=== PATIENT | female | born 1930 | race Caucasian/White ===

== ENCOUNTER 2016-12-14 17:07 | Emergency (ER) | payer OTHER, MEDICAID ==
[~2016-12-14] VITALS: Ht 149.9 cm; Wt 59.0 kg
[~2016-12-14 17:07] MED LIST: ALEN70TA3 PO; GLU500 PO; LISI-600 PO; RANI300T4 PO; SIMV10TA6 PO
[2016-12-14 17:16] VITALS: BP 209/81; PULSE 60; RESP 18; TEMP 98.1; O2SAT 99
--- NOTE | 2016-12-14 17:16 | NUR ---
Patient to ER bed 2 to gown for evaluation. Side rails up. Report given to Royer CAMERON.
--- NOTE | 2016-12-14 17:20 | NUR ---
ER at bedside examining patient.
--- NOTE | 2016-12-14 17:38 | NUR ---
Medication reconciliation completed with information provided by - handwritten list from patient. Any prior medication reconciliation on file was reviewed and corrected.
[2016-12-14] MEDS ORDERED: ONDANSETRON HCL 4 MG/2 ML VIAL IVP ONE (17:45)
[2016-12-14] MEDS ORDERED: hydrALAZINE HCL 20 MG/ML VIAL IVP ONE (17:45)
[2016-12-14] MEDS ORDERED: MORPHINE 4 MG/ML INJ. SYRINGE IVP ONE (17:45)
--- NOTE | 2016-12-14 17:45 | NUR ---
# 22 gauge angiocath placed to LFA. Use of asceptic technique. Opsite placed over site. Blood return noted. Blood for lab drawn from site. Flushed with 10 cc of normal saline. No evidence of infiltration noted. Patient tolerated well.
--- NOTE | 2016-12-14 18:05 | NUR ---
Patient transported to radiology via gurney, accompanied by rad staff.
--- NOTE | 2016-12-14 18:16 | NUR ---
Pt returned from rad dept.Pt tolerated well.
[2016-12-14 18:21] LABS: ANION GAP 9 (5-15); CALCIUM 9.7 mg/dL (8.4-11.0); CHLORIDE 102 mmol/L (98-107); CREATININE 0.92 mg/dL (0.55-1.30); GLUCOSE 172 mg/dL (70-99); POTASSIUM 4.5 mmol/L (3.5-5.1); SODIUM SERUM 141 mmol/L (136-145); UREA NITROGEN, BLOOD 15 mg/dL (8-21)
[2016-12-14 18:22] LABS: BASOPHILS % (AUTO) 0.4 % (0.0-2.0); EOSINOPHILS # (AUTO) 0.5 K/uL (0.0-0.4); EOSINOPHILS % (AUTO) 5.8 % (0.0-4.0); HEMATOCRIT 32.6 % (36-48); HEMOGLOBIN 11.1 g/dL (12.0-16.0); LYMPHOCYTES # (AUTO) 2.3 K/uL (1.0-5.5); LYMPHOCYTES % (AUTO) 26.1 % (20.5-51.5); MEAN CORPUSCULAR HEMOGLOBIN 31 pg (27-31); MEAN CORPUSCULAR HGB CONC 34 % (32-36); MEAN CORPUSCULAR VOLUME 90 fL (79.0-98.0); MONOCYTES # (AUTO) 0.7 K/uL (0.0-1.0); MONOCYTES % (AUTO) 8.1 % (1.7-9.3); NEUTROPHILS # (AUTO) 5.4 K/uL (1.8-7.7); NEUTROPHILS % (AUTO) 59.6 % (40.0-70.0); PLATELET COUNT (AUTO) 267 K/uL (130-430); RED BLOOD CELL COUNT(AUTO) 3.62 MIL/uL (4.2-6.2); RED CELL DISTRIBUTION WIDTH 13.9 % (9.0-15.0); WHITE BLOOD COUNT (AUTO) 8.9 K/uL (4.8-10.8)
[2016-12-14 18:27] LABS: ALANINE AMINOTRANSFERASE 16 U/L (12-78); ALBUMIN 3.9 g/dL (3.4-4.8); ASPARTATE AMINOTRANSFERASE 16 U/L (10-37); TOTAL BILIRUBIN 0.3 mg/dL (0.0-1.0); TOTAL PROTEIN, SERUM 7.1 g/dL (6.4-8.3)
--- NOTE | 2016-12-14 18:30 | NUR ---
[facility]
[2016-12-14 19:04] VITALS: BP 180/78; PULSE 75; RESP 18; TEMP 97.6; O2SAT 96
--- NOTE | 2016-12-14 19:04 | NUR ---
Patient given written and verbal discharge instructions and verbalizes understanding. ER MD discussed with patient the results and treatment provided. Given copies of tests performed in ER. Patient in stable condition. ID arm band removed. IV catheter removed intact and dressing applied, no active bleeding. Rx of NORCO given. Patient educated on pain management and to follow up with PMD. Pain Scale 3. Opportunity for questions provided and answered.
== END 2016-12-14 19:04 | disposition home or self-care (01) ==
LOC: SED 17:07
DX: S83.91XA Sprain of unspecified site of right knee, initial encounter (principal); S40.011A Contusion of right shoulder, initial encounter; S50.01XA Contusion of right elbow, initial encounter; E11.9 Type 2 diabetes mellitus without complications; I10 Essential (primary) hypertension; Z90.49 Acquired absence of other specified parts of digestive tract; W19.XXXA Unspecified fall, initial encounter; Y93.89 Activity, other specified; Y99.8 Other external cause status; Y92.89 Other specified places as the place of occurrence of the external cause
CPT/HCPCS: 29105; 36415; 73030; 73080; 73560; 80053; 85025; 85610; 85730; 96374; 96375; 99285; J0360; J2270; J2405

== ENCOUNTER 2019-02-12 19:17 | Emergency (ER) | payer OTHER, MEDICAID ==
[~2019-02-12] VITALS: Ht 134.6 cm; Wt 56.2 kg
[2019-02-12 19:27] VITALS: BP_SYST 162
--- NOTE | 2019-02-12 20:02 | NUR ---
Pt C/O dizziness, nausea and vomiting since this morning. Pt has hx of vertigo and took Meclizine with no relief. Pt denies any chest pain, SOB, or any other symptoms at this time. Family reported coffee ground emesis at home. Will continue to monitor.
--- NOTE | 2019-02-12 20:02 | NUR ---
Placed in room 2. [address] on [address] recording monitor, blood pressure machine and pulse oximeter. To gown for exam. Side rails up.
[2019-02-12] MEDS ORDERED: MECLIZINE HCL 25 MG TABLET (ANITVERT) PO ONE ×2 (20:30→22:00)
[2019-02-12] MEDS ORDERED: NACL 0.9% 1,000 ML IV ONE (20:30)
[2019-02-12] MEDS ORDERED: ONDANSETRON HCL 4 MG/2 ML VIAL IVP ONE (20:30)
[2019-02-12] MEDS ORDERED: hydrALAZINE HCL 20 MG/ML VIAL IVP ONE (20:45)
--- NOTE | 2019-02-12 20:45 | NUR ---
# 20 gauge angiocath placed to RT AC. Use of asceptic technique. Opsite placed over site. Blood return noted. Blood for lab drawn from site. Flushed with 10 cc of normal saline. No evidence of infiltration noted. Patient tolerated well.
--- NOTE | 2019-02-12 21:30 | NUR ---
Pt is resting in bed, no acute distress noted at this time. BP is 166/65 after medication administration
[2019-02-12] MEDS ORDERED: PROCHLORPERAZINE EDISYLATE 10 MG/2 ML VIAL IVP ONE (22:00)
--- NOTE | 2019-02-12 22:42 | NUR ---
Pt ambulated to the restroom still C/O dizziness at this time.
[2019-02-12 22:58] LABS: ANION GAP 13 (5-15); CHLORIDE 104 mmol/L (98-107); CREATININE 0.93 mg/dL (0.55-1.30); GLUCOSE 189 mg/dL (70-99); POTASSIUM 4.3 mmol/L (3.5-5.1); SODIUM SERUM 139 mmol/L (136-145); UREA NITROGEN, BLOOD 20 mg/dL (8-21)
[2019-02-12 23:00] LABS: BASOPHILS % (AUTO) 0.2 % (0.0-2.0); HEMATOCRIT 35.8 % (36-48); HEMOGLOBIN 11.6 g/dL (12.0-16.0); LYMPHOCYTES # (AUTO) 0.8 K/uL (1.0-5.5); LYMPHOCYTES % (AUTO) 6.2 % (20.5-51.5); MEAN CORPUSCULAR HEMOGLOBIN 29 pg (27-31); MEAN CORPUSCULAR HGB CONC 32 % (32-36); MEAN CORPUSCULAR VOLUME 88 fL (79.0-98.0); MONOCYTES # (AUTO) 0.2 K/uL (0.0-1.0); MONOCYTES % (AUTO) 1.8 % (1.7-9.3); NEUTROPHILS # (AUTO) 12.1 K/uL (1.8-7.7); NEUTROPHILS % (AUTO) 91.8 % (40.0-70.0); PLATELET COUNT (AUTO) 369 K/uL (130-430); RED BLOOD CELL COUNT(AUTO) 4.05 MIL/uL (4.2-6.2); RED CELL DISTRIBUTION WIDTH 16.7 % (9.0-15.0); WHITE BLOOD COUNT (AUTO) 13.1 K/uL (4.8-10.8)
--- NOTE | 2019-02-12 23:03 | NUR ---
Patient transported to radiology via gurney, accompanied by rad staff.
[2019-02-12 23:04] LABS: ALANINE AMINOTRANSFERASE 12 U/L (12-78); ALBUMIN 3.6 g/dL (3.4-4.8); ASPARTATE AMINOTRANSFERASE 13 U/L (10-37); TOTAL BILIRUBIN 0.4 mg/dL (0.0-1.0)
--- NOTE | 2019-02-12 23:31 | NUR ---
Pt is resting in bed, no acute distress noted at this time
[2019-02-13] MEDS ORDERED: NACL 0.9% 1,000 ML IV ONE (00:30)
--- NOTE | 2019-02-13 00:38 | NUR ---
Pt unable to produce a urine sample at this time. Dr. Muro ordered 1 L NS bolus. Will continue to monitor.
[2019-02-13] MEDS ORDERED: cefTRIAXone 1 GM IVPB PREMIX 50 ML IV ONE (01:00)
--- NOTE | 2019-02-13 01:29 | NUR ---
Pt is resting in bed, no acute distress noted at this time
[2019-02-13 01:42] VITALS: BP_SYST 138
--- NOTE | 2019-02-13 01:43 | NUR ---
Patient given written and verbal discharge instructions and verbalizes understanding. ER MD discussed with patient the results and treatment provided. Patient in stable condition. ID arm band removed. IV catheter removed intact and dressing applied, no active bleeding. Rx of Meclizine and Macrobid given. Patient educated on pain management and to follow up with PMD. Pain Scale 0/10. Opportunity for questions provided and answered. Medication side effect fact sheet provided.
== END 2019-02-13 01:43 | disposition home or self-care (01) ==
LOC: SED 19:17
DX: N39.0 Urinary tract infection, site not specified (principal); R42 Dizziness and giddiness; R11.0 Nausea; E11.9 Type 2 diabetes mellitus without complications; I10 Essential (primary) hypertension; Z79.899 Other long term (current) drug therapy
CPT/HCPCS: 36415; 70450; 71045; 80053; 83605; 84484; 85025; 87040; 96361; 96365; 96375; 99284; J0360; J0696; J0780; J2405; J7030; J8597